=== PATIENT | female | born 1935 | race Two or more races ===

== ENCOUNTER 2022-10-08 19:44 | Emergency (ER) | payer OTHER ==
[~2022-10-08] VITALS: Ht 152.4 cm; Wt 41.0 kg
[2022-10-08 20:44] VITALS: BP 145/89
== END 2022-10-08 23:33 | disposition left against medical advice (07) ==
LOC: ER 19:44
DX: R51.9 Headache, unspecified (principal); Z53.21 Procedure and treatment not carried out due to patient leaving prior to being seen by health care provider
CPT/HCPCS: 99281